=== PATIENT | male | born 1975 | race Caucasian/White ===

== ENCOUNTER 2022-09-14 10:43 | Observation (INO) ==
[2022-09-14 10:52] VITALS: BMI 27.4
--- NOTE | 2022-09-14 11:13 | DR.N/VMALE ---
HPI Time Seen Time Seen by Provider: 09/14/22 11:12 Primary Care Physician Primary Care Physician: [facility] Complaints Chief Complaint:: PT STATES THAT LAST NIGHT AROUND 2129 HE HAD A SUDDEN ONSET OF SEVERE CONSTANT ABDOMINAL CRAMPING JUST BELOW THE UMBILICUS. PT STATES THAT THE CRAMPING CONTINUED ALL NIGHT AND WAS ASSOCIATED WITH DIARRHEA, COLD SWEATS, AND NAUSEA WITH A FEW EPISODES OF VOMITING. PT STATES THAT THIS MORNING HE NOTICED BRIGHT RED BLOOD IN STOOL. Self Treatment fo Chief Complaint: PT TOOK ALEEVE X 2 LAST NIGHT WITH NO RELIEF AND TOOK MILK OF MAGNESIA 15ML PO THIS MORNING. COVID-19 Coronavirus risk:travel/contact w/high risk person: No Has patient experienced Coronavirus symptoms: No Source History Provided: Patient Mode of Arrival Mode of Arrival: Ambulatory Timing Onset of Chief Complaint: 09/14/22 PMH PMH Past Medical History: No Past Medical History: Anxiety and Depression Past Surgical History: Yes Past Surgical History Comment: HEMORROIDECTOMY Family History History of Family Medical Conditions: No Family Medical History: [place] Social History Does patient currently use any type of tobacco product: No Have you used tobacco products in the last 12 months: No Type of Tobacco Use: None Does any household member use tobacco: No Alcohol Use: Rarely Do you use any recreational Drugs:: No Lives With: Family Lives Where: Home Travel Risk Coronavirus risk:travel/contact w/high risk person: No Has patient experienced Coronavirus symptoms: No Infectious screening In the last 2 months have you had wt loss of >10#?: NO Have you had fever, night sweats or hemotysis?: No Have you traveled outside the country in the last 6 months?: No Isolation: Standard PE Vital Signs Vitals: Temperature 97.9 F Pulse Rate 69 Respiratory Rate 20 Blood Pressure [Left Arm] 129/88 Blood Pressure 133/87 O2 Sat by Pulse Oximetry 95 ROR Labs Reviewed Result Diagrams: 09/14/22 11:47 09/14/22 11:47 Laboratory: 09/14/22 14:30 Stool - Final WBC 14.3 X10^3/uL (3.6-10.0) H 09/14/22 11:47 RBC 5.97 X10^6/uL (4.7-6.0) 09/14/22 11:47 Hgb 17.0 g/dL (13.5-18.0) 09/14/22 11:47 Hct 50.8 % (42.0-54.0) 09/14/22 11:47 MCV 85.1 fL (80.0-100.0) 09/14/22 11:47 MCH 28.5 pg (27.0-34.0) 09/14/22 11:47 MCHC 33.5 g/dL (33.0-35.0) 09/14/22 11:47 RDW 14.4 % (11.6-16.5) 09/14/22 11:47 Plt Count 231 X10^3/uL (150.0-450.0) 09/14/22 11:47 MPV 8.7 fL (7.4-11.0) 09/14/22 11:47 Neut % (Auto) 88.2 % (42.0-75.0) H 09/14/22 11:47 Lymph % (Auto) 4.0 % (21.0-51.0) L 09/14/22 11:47 [place] % (Auto) 6.7 % (0.0-13.0) 09/14/22 11:47 Eos % (Auto) 0.7 % (0.9-2.9) L 09/14/22 11:47 Baso % (Auto) 0.4 % (0.2-1.0) 09/14/22 11:47 Neut # (Auto) 12.6 x10^3/uL (2.2-4.8) H 09/14/22 11:47 Lymph # (Auto) 0.6 X10^3/uL (1.3-2.9) L 09/14/22 11:47 [place] # (Auto) 1.0 x10^3/uL (0.3-0.8) H 09/14/22 11:47 Eos # (Auto) 0.1 x10^3/uL (0.0-0.2) 09/14/22 11:47 Baso # (Auto) 0.1 X10^3/uL (0.0-0.1) 09/14/22 11:47 Absolute Nucleated RBC 0.0 /100WBC 09/14/22 11:47 Sodium 135 mmol/L (136-145) L 09/14/22 11:47 Corrected Sodium TNP 12/10/22 11:47 Potassium 4.0 mmol/L (3.5-5.1) 09/14/22 11:47 Chloride 100 mmol/L (98-107) 09/14/22 11:47 Carbon Dioxide 30.2 mmol/L (21-32) 09/14/22 11:47 BUN 7 mg/dL (7-18) 09/14/22 11:47 Creatinine 1.03 mg/dL (0.70-1.30) 09/14/22 11:47 Est GFR (MDRD) Af Amer > 60 (>60) 09/14/22 11:47 Est GFR (MDRD) Non-Af > 60 (>60) 09/14/22 11:47 Glucose 108 mg/dL (65-99) H 09/14/22 11:47 Calcium 8.2 mg/dL (8.5-10.1) L 09/14/22 11:47 Corrected Calcium TNP 09/14/22 11:47 Total Bilirubin 0.70 mg/dL (0.2-1.0) 09/14/22 11:47 AST 26 Units/L (15-37) 09/14/22 11:47 ALT 33 Units/L (12-78) 09/14/22 11:47 Alkaline Phosphatase 55 Units/L (46-116) 09/14/22 11:47 Total Protein 7.3 g/dL (6.4-8.2) 09/14/22 11:47 Albumin 4.0 g/dL (3.4-5.0) 09/14/22 11:47 Globulin 3.3 g/dL (2.5-4.5) 09/14/22 11:47 Albumin/Globulin Ratio 1.2 Ratio (1.1-2.1) 09/14/22 11:47 Amylase 75 Units/L (25-115) 09/14/22 11:47 Lipase 108 Units/L (73-393) 09/14/22 11:47 Specimen Type Clean catch urine 09/14/22 12:58 Urine Color Yellow (YELLOW) 09/14/22 12:58 Urine Appearance Clear (CLEAR) 09/14/22 12:58 Urine pH 7.0 (5.0 - 8.0) 09/14/22 12:58 Ur Specific [place] 1.015 (1.000-1.030) 09/14/22 12:58 Urine Protein 2+ (NEGATIVE) 09/14/22 12:58 Urine Glucose (UA) Negative (NEGATIVE) 09/14/22 12:58 Urine Ketones 3+ (NEGATIVE) 09/14/22 12:58 Urine Blood Negative (NEGATIVE) 09/14/22 12:58 Urine Nitrite Negative (NEGATIVE) 09/14/22 12:58 Urine Bilirubin Negative (NEGATIVE) 09/14/22 12:58 Urine Urobilinogen Normal (NORMAL) 09/14/22 12:58 Ur Leukocyte Esterase Negative (NEGATIVE) 09/14/22 12:58 Urine RBC 0-2 /HPF (0-3) 09/14/22 12:58 Urine WBC 0-2 /HPF (0-5) 09/14/22 12:58 Ur Squamous Epith Cells Few /HPF (NEGATIVE) 09/14/22 12:58 Urine Bacteria Trace /HPF (NEGATIVE) 09/14/22 12:58 Ur Culture Indicated? No/not indicated 09/14/22 12:58 Stl Occult Blood (IFOB) Positive (NEGATIVE) A 09/14/22 14:30 Stool for White Cells Positive (NEGATIVE) A 09/14/22 14:30 Stl C. diff Tox B Gene Negative (NEGATIVE) 09/14/22 14:30 Stl C. diff [id number] Presumptive negative (NEGATIVE) 09/14/22 14:30 SARS-CoV-2 (PCR) Negative (NEGATIVE) 09/14/22 15:16 Cryptosporid parvum Ag Negative (NEGATIVE) 09/14/22 14:30 Giardia lamblia Ag Negative (NEGATIVE) 09/14/22 14:30 Influenza Type A (PCR) Negative (NEGATIVE) 09/14/22 15:16 Influenza Type B (PCR) Negative (NEGATIVE) 09/14/22 15:16 RSV (PCR) Negative (NEGATIVE) 09/14/22 15:16 Opioid Opioid Risk Tool Age (Rohit box if 16-45): Yes History of Preadolescent Sexual Abuse: No Total: 1 Total Score Risk Category: Low Risk Copyright: Sami VEGA predicting aberrant behaviors Discharge Plan Diagnosis Discharge Problem: Acute gastroenteritis, Acute dehydration, Colitis, Lesion of colon, Acute GI bleeding, Acute infectious diarrhea Discharge Plan Patient Disposition: 09 ADMITTED INPATIENT Condition: Stable Prescriptions: No Action NK amoxicillin-pot clavulanate [Augmentin] 875-125 mg tablet 1 tab PO BID Qty: 20 0RF Zyrtec 10 mg capsule 10 mg PO DAILY Qty: 10 0RF Health Concerns: Post Hospitalization: new medications and changes needed to prevent readmission or further decline. Pt educated and given instructions on all concerns. Plan of Treatment: Continue with present treatment and follow up plan. Pt is to keep follow up appointment as instructed and take medications as ordered. Orders to Discharge Patient Discharge Orders: Transfer (Routine); Ordered 09/14/22 Ordered By: SAIDA GOLD Follow ups/Referrals Follow ups/Referrals: MORIS ALBERTO [Primary Care Provider] - 3 days
[2022-09-14] MEDS ORDERED: NS 1,000 ML IV 1,000 ML IV ONE (11:29)
[2022-09-14] MEDS ORDERED: DEMEROL INJ IVP ONE ×2 (11:29→13:48)
[2022-09-14] MEDS ORDERED: ZOFRAN INJ 4 MG VIAL IVP ONE ×2 (11:29→18:19)
[2022-09-14] MEDS ORDERED: ZOFRAN INJ 4 MG VIAL ONE ×2 (11:36→18:30)
[2022-09-14] MEDS ORDERED: DEMEROL INJ ONE ×2 (11:36→13:50)
[2022-09-14] MEDS ORDERED: NS 1,000 ML IV 1,000 ML ONE ×2 (11:36→15:51)
[2022-09-14 11:56] LABS: BASOPHILS # (AUTO) 0.1 X10^3/uL (0.0-0.1); BASOPHILS % (AUTO) 0.4 % (0.2-1.0); EOSINOPHILS # (AUTO) 0.1 x10^3/uL (0.0-0.2); EOSINOPHILS % (AUTO) 0.7 % (0.9-2.9); HEMATOCRIT 50.8 % (42.0-54.0); LYMPHOCYTES # (AUTO) 0.6 X10^3/uL (1.3-2.9); MEAN CORPUSCULAR HEMOGLOBIN 28.5 pg (27.0-34.0); MEAN CORPUSCULAR HGB CONC 33.5 g/dL (33.0-35.0); MEAN CORPUSCULAR VOLUME 85.1 fL (80.0-100.0); MEAN PLATELET VOLUME 8.7 fL (7.4-11.0); MONOCYTES % (AUTO) 6.7 % (0.0-13.0); NEUTROPHILS # (AUTO) 12.6 x10^3/uL (2.2-4.8); NEUTROPHILS % (AUTO) 88.2 % (42.0-75.0); RED BLOOD COUNT 5.97 X10^6/uL (4.7-6.0); RED CELL DISTRIBUTION WIDTH 14.4 % (11.6-16.5); WHITE BLOOD COUNT 14.3 X10^3/uL (3.6-10.0)
[2022-09-14 12:08] LABS: ALANINE AMINOTRANSFERASE 33 Units/L (12-78); ALKALINE PHOSPHATASE 55 Units/L (46-116); AMYLASE 75 Units/L (25-115); ASPARTATE AMINO TRANSFERASE 26 Units/L (15-37); BLOOD UREA NITROGEN 7 mg/dL (7-18); CALCIUM 8.2 mg/dL (8.5-10.1); CARBON DIOXIDE 30.2 mmol/L (21-32); CHLORIDE 100 mmol/L (98-107); CREATININE 1.03 mg/dL (0.70-1.30); LIPASE 108 Units/L (73-393); SODIUM 135 mmol/L (136-145); TOTAL PROTEIN 7.3 g/dL (6.4-8.2); eGFR NON BLACK RACES > 60 (>60)
--- NOTE | 2022-09-14 13:11 | CT ---
HISTORYlower abd painHistory: [Renal colic and flank pain]. Concern for renal stone.Exam: Non-contrast CT examination of the abdomen & pelvis.Technique: Multiple CT images of the abdomen and pelvis were obtained from the lung bases to the pubic symphysis without the IV administration of contrast. Of note, this CT exam was optimized for renal stone disease and some parenchymal organ abnormalities and vascular abnormalities/injuries cannot be excluded on the basis of this CT exam.Findings:[The lung bases are clear]. The heart is [normal in size without a pericardial effusion]. [The liver, gallbladder, adrenal glands, and spleen are unremarkable on these non contrasted images]. [There is no pneumoperitoneum or hemoperitoneum seen]. [There is no bowel obstruction, large hernia defect, or acute mesenteric inflammatory change]. [There is no evidence for colitis, diverticulitis, or appendicitis]. Abnormal bowel wall thickening is seen within the transverse colon which can indicate an early colitis or possibly colonic carcinoma. Follow-up with colonoscopy is recommended or barium enema is recommended when the patient is improved. [No loculated intraperitoneal fluid collection is seen]. Examination of the kidneys demonstrates no obstructing renal stone or hydronephrosis. No other renal, bladder, or abdominopelvic abnormalities are seen. No lytic bony lesions or acute fractures are seen.Impression:Abnormal bowel wall thickening is seen within the mid transverse colon which can indicate an early colitis or possibly colonic carcinoma. Follow-up with colonoscopy is recommended or barium enema is recommended when the patient is improved. No other acute abdominopelvic process identified.Electronically signed by: HILARY JACOB III (Sep 14, 2022 13:09:20)
[2022-09-14 13:18] LABS: BILIRUBIN,URINE NEGATIVE (NEGATIVE); BLOOD/HEMOGLOBIN,URINE NEGATIVE (NEGATIVE); GLUCOSE, URINE NEGATIVE (NEGATIVE); KETONES,URINE 3+ (NEGATIVE); LEUKOCYTE ESTERASE ,URINE NEGATIVE (NEGATIVE); NITRITES,URINE NEGATIVE (NEGATIVE); PROTEIN,URINE 2+ (NEGATIVE); UROBILINOGEN,URINE NORMAL (NORMAL)
[2022-09-14 13:31] LABS: APPEARANCE,URINE CLEAR (CLEAR); BACTERIA,URINE TRACE /HPF (NEGATIVE); COLOR,URINE YELLOW (YELLOW); RBC,URINE 0-2 /HPF (0-3); SQUAMOUS EPITHELIAL CELL,UR FEW /HPF (NEGATIVE)
[2022-09-14] MEDS ORDERED: PEPCID 20 MG VIAL IVP ONE (14:42)
[2022-09-14] MEDS ORDERED: NS 50 ML IV 50 ML IV ONE (14:47)
[2022-09-14] MEDS ORDERED: PEPCID 20 MG VIAL ONE (14:48)
[2022-09-14 15:41] LABS: CRYPTOSPORIDIUM PARVUM ANTIGEN NEGATIVE (NEGATIVE); GIARDIA LAMBLIA ANTIGEN NEGATIVE (NEGATIVE)
[2022-09-14] MEDS: NS 1,000 ML IV 1,000 ML IV SCH ×2 (15:56→23:23)
[2022-09-14] MEDS ORDERED: DILAUDID INJ IVP ONE (18:17)
[2022-09-14] MEDS ORDERED: CIPRO IV 400 MG PREMIX* 400 MG/200 ML IV.SOLN. IV ONE ×2 (18:19→18:30)
[2022-09-14] MEDS ORDERED: DILAUDID INJ ONE (18:30)
[2022-09-14] MEDS ORDERED: ZOFRAN INJ 4 MG VIAL IVP PRN (20:35)
[2022-09-14] MEDS: CIPRO TAB 500 MG PO SCH (20:38)
[2022-09-14] MEDS: PROTONIX INJ 40 MG VIAL IVP SCH (21:54)
[2022-09-14] MEDS: FLAGYL TAB 500 MG PO SCH (21:54)
[2022-09-14] MEDS: MORPHINE SULFATE INJ 4 MG IVP PRN (23:19)
[2022-09-15] MEDS: TYLENOL 325 MG TAB PO PRN ×2 (02:58→10:23)
[2022-09-15] MEDS: MORPHINE SULFATE INJ 4 MG IVP PRN ×2 (04:30→10:23)
[2022-09-15 06:06] LABS: BASOPHILS # (AUTO) 0.1 X10^3/uL (0.0-0.1); BASOPHILS % (AUTO) 0.5 % (0.2-1.0); EOSINOPHILS # (AUTO) 0.2 x10^3/uL (0.0-0.2); EOSINOPHILS % (AUTO) 1.2 % (0.9-2.9); HEMATOCRIT 47.5 % (42.0-54.0); HEMOGLOBIN 16.2 g/dL (13.5-18.0); LYMPHOCYTES # (AUTO) 1.3 X10^3/uL (1.3-2.9); LYMPHOCYTES % (AUTO) 9.1 % (21.0-51.0); MEAN CORPUSCULAR HEMOGLOBIN 28.8 pg (27.0-34.0); MEAN CORPUSCULAR HGB CONC 34.1 g/dL (33.0-35.0); MEAN CORPUSCULAR VOLUME 84.3 fL (80.0-100.0); MEAN PLATELET VOLUME 9.3 fL (7.4-11.0); MONOCYTES # (AUTO) 1.4 x10^3/uL (0.3-0.8); MONOCYTES % (AUTO) 9.9 % (0.0-13.0); NEUTROPHILS # (AUTO) 11.2 x10^3/uL (2.2-4.8); NEUTROPHILS % (AUTO) 79.3 % (42.0-75.0); RED BLOOD COUNT 5.63 X10^6/uL (4.7-6.0); RED CELL DISTRIBUTION WIDTH 14.3 % (11.6-16.5); WHITE BLOOD COUNT 14.2 X10^3/uL (3.6-10.0)
[2022-09-15] MEDS: FLAGYL TAB 500 MG PO SCH (06:11)
[2022-09-15 06:25] LABS: ALANINE AMINOTRANSFERASE 26 Units/L (12-78); ALBUMIN 3.2 g/dL (3.4-5.0); ALKALINE PHOSPHATASE 47 Units/L (46-116); ASPARTATE AMINO TRANSFERASE 20 Units/L (15-37); BLOOD UREA NITROGEN 4 mg/dL (7-18); CALCIUM 7.5 mg/dL (8.5-10.1); CARBON DIOXIDE 27.3 mmol/L (21-32); CHLORIDE 104 mmol/L (98-107); COR CA(FOR HYPOALB) 8.1 mg/dL (8.5-10.1); CREATININE 0.99 mg/dL (0.70-1.30); SODIUM 137 mmol/L (136-145); TOTAL PROTEIN 6.3 g/dL (6.4-8.2); eGFR NON BLACK RACES > 60 (>60)
[2022-09-15] MEDS: CIPRO TAB 500 MG PO SCH (09:06)
[2022-09-15] MEDS: PROTONIX INJ 40 MG VIAL IVP SCH (09:06)
[2022-09-15] MEDS: NS 1,000 ML IV 1,000 ML IV SCH (09:15)
[2022-09-15] MEDS ORDERED: PROTONIX TAB 40 MG PO SCH (11:00)
[2022-09-15 11:01] VITALS: BP 149/87
[2022-09-15] MEDS ORDERED: CYTOTEC ONE (11:31)
[2022-09-15] MEDS ORDERED: CYTOTEC PO SCH (13:00)
== END 2022-09-15 12:00 | disposition home or self-care (01) ==
LOC: ER 10:43 → MED/SURG 10:43
PROVIDERS: ADMIT Obstetrics & Gynecology Obstetrics; ATTEND Obstetrics & Gynecology Obstetrics
DX: R10.84 Generalized abdominal pain; K52.89 Other specified noninfective gastroenteritis and colitis; Z20.822 Contact with and (suspected) exposure to COVID-19; R19.7 Diarrhea, unspecified; K92.1 Melena; R11.2 Nausea with vomiting, unspecified; E86.0 Dehydration